=== PATIENT | male | born 2000 | race African-American/Black ===

== ENCOUNTER 2019-02-01 18:24 | Emergency (ER) | payer MEDICAID ==
[~2019-02-01] VITALS: Ht 172.7 cm; Wt 72.0 kg
[2019-02-01] MEDS ORDERED: KETOROLAC 60MG/2ML VIAL IM ONE (19:00)
[2019-02-01 20:07] VITALS: BP 125/80
== END 2019-02-01 20:20 | disposition home or self-care (01) ==
LOC: ER 18:24
DX: S97.81XA Crushing injury of right foot, initial encounter (principal); V03.90XA Pedestrian on foot injured in collision with car, pick-up truck or van, unspecified whether traffic or nontraffic accident, initial encounter; Y93.89 Activity, other specified; Y92.89 Other specified places as the place of occurrence of the external cause; Y99.8 Other external cause status
CPT/HCPCS: 29515; 73630; 96372; 99283; J1885; Z7610

== ENCOUNTER 2022-07-21 10:12 | Emergency (ER) | payer MEDICAID ==
[~2022-07-21] VITALS: Ht 185.4 cm; Wt 89.0 kg
[2022-07-21] MEDS ORDERED: PSEU60TA99 MT (12:27)
[2022-07-21] MEDS ORDERED: NAPR-681 MT (12:29)
[2022-07-21] MEDS ORDERED: BENZ100C86 MT (12:29)
[2022-07-21 12:45] VITALS: BP 141/87
[2022-07-21] MEDS ORDERED: IBUPROFEN 400MG TABLET PO ONE (12:45)
[2022-07-21] MEDS ORDERED: DEXAMETHASONE 2MG TABLET PO ONE (12:45)
== END 2022-07-21 13:52 | disposition home or self-care (01) ==
LOC: ER 10:12
DX: B34.9 Viral infection, unspecified (principal); Z98.890 Other specified postprocedural states
CPT/HCPCS: 99283; J8540

== ENCOUNTER 2022-09-29 05:41 | Emergency (ER) | payer MEDICAID ==
[~2022-09-29] VITALS: Ht 188 cm; Wt 90.0 kg
[~2022-09-29 05:41] MED LIST: BENZ100C86 MT; NAPR-681 MT; PSEU60TA99 MT
[2022-09-29] MEDS ORDERED: AMOX1TAB16 PO (06:41)
[2022-09-29] MEDS ORDERED: IBUP-2028 PO (06:41)
[2022-09-29] MEDS ORDERED: IBUPROFEN 800MG TABLET PO ONE (06:45)
[2022-09-29] MEDS ORDERED: IBUPROFEN 400MG TABLET PO SCH (07:15)
[2022-09-29 07:54] VITALS: BP 121/74
== END 2022-09-29 07:58 | disposition home or self-care (01) ==
LOC: ER 05:41
DX: H66.91 Otitis media, unspecified, right ear (principal); Z79.899 Other long term (current) drug therapy
CPT/HCPCS: 99283

== ENCOUNTER 2023-02-24 13:53 | Emergency (ER) | payer MEDICAID ==
[~2023-02-24] VITALS: Ht 180.3 cm; Wt 73.0 kg
[~2023-02-24 13:53] MED LIST changes: +AMOX1TAB16 PO; +BO1 TP; +IBUP-2028 PO; +IBUP-2029 MT
[2023-02-24 14:11] VITALS: O2SAT 98
[2023-02-24] MEDS ORDERED: DEXAMETHASONE 10 MG/ML VIAL PO ONE (14:30)
[2023-02-24] MEDS ORDERED: KETOROLAC 30MG/ML VIAL IM ONE (14:30)
[2023-02-24] MEDS ORDERED: AMOX-494 MT (15:48)
[2023-02-24] MEDS ORDERED: NAPR-681 MT (15:48)
[2023-02-24 16:07] LABS: MONOTEST NEGATIVE (NEGATIVE)
[2023-02-24 16:23] VITALS: BP 118/75; PULSE 78; RESP 18; TEMP 98.5
== END 2023-02-24 16:25 | disposition home or self-care (01) ==
LOC: ER 13:53
DX: J02.0 Streptococcal pharyngitis (principal); Z98.890 Other specified postprocedural states
CPT/HCPCS: 99283; 87430; 86308; 96372; J1100; J1885

== ENCOUNTER 2024-09-16 21:34 | Emergency (ER) | payer MEDICAID ==
[~2024-09-16] VITALS: Ht 182.9 cm; Wt 77.0 kg
[~2024-09-16 21:34] MED LIST changes: +AMOX-494 MT
[2024-09-16 21:43] VITALS: BP 148/111; PULSE 73; RESP 16; TEMP 36.6; O2SAT 96
== END 2024-09-17 03:46 | disposition left against medical advice (07) ==
LOC: ER 21:34
DX: F41.9 Anxiety disorder, unspecified (principal); I49.9 Cardiac arrhythmia, unspecified; Z53.21 Procedure and treatment not carried out due to patient leaving prior to being seen by health care provider
CPT/HCPCS: 93005

== ENCOUNTER 2025-01-17 07:34 | Emergency (ER) | payer MEDICAID ==
[~2025-01-17] VITALS: Ht 182.9 cm; Wt 80.0 kg
[~2025-01-17 07:34] MED LIST changes: -AMOX-494 MT; -AMOX1TAB16 PO; -BENZ100C86 MT; -BO1 TP; +IBUP-1455 MT; -IBUP-2028 PO; -IBUP-2029 MT; -NAPR-681 MT; -PSEU60TA99 MT; +THIA100T72 MT
[2025-01-17 07:39] VITALS: TEMP 36.8; O2SAT 99
[2025-01-17] MEDS ORDERED: P50 MT (07:59)
[2025-01-17] MEDS ORDERED: CETI10CA11 MT (07:59)
[2025-01-17] MEDS ORDERED: FAMO-135 MT (07:59)
[2025-01-17] MEDS: DIPHENHYDRAMINE 50MG/ML VIAL IM ONE (08:12)
[2025-01-17 09:23] VITALS: BP 133/85; PULSE 66; RESP 16; O2SAT 100
== END 2025-01-17 09:39 | disposition home or self-care (01) ==
LOC: ER 07:34
DX: L50.9 Urticaria, unspecified (principal); F10.90 Alcohol use, unspecified, uncomplicated; Z79.899 Other long term (current) drug therapy; Y90.9 Presence of alcohol in blood, level not specified
CPT/HCPCS: 99283; 96372; J1200